=== PATIENT | male | born 1935 | race African-American/Black ===

== ENCOUNTER 2018-01-15 07:50 | Outpatient (CLI) | payer OTHER ==
--- NOTE | 2018-01-15 14:48 | NM ---
NUCLEAR MEDICINE BRAIN IMAGING: HISTORY: Parkinson disease. TECHNIQUE: A DaTscan with axial tomographic images of the brain was obtained three hours following the intraveno us administration of 5 millicuries Iodine-123 Ioflupane. The patient was pretreated with 130 mg of p otassium iodide one hour prior to the injection. FINDINGS: There is loss of normal symmetric uptake in the striata bilaterally, more prominent on the right. IMPRESSION: Parkinsonian syndrome. POS: FLOR[facility]IN[facility]
== END 2018-01-15 07:51 | disposition home or self-care (01) ==
LOC: NM 07:50
DX: G20 Parkinson's disease (principal)
CPT/HCPCS: 78607; A9584